=== PATIENT | female | born 1930 | race Caucasian/White ===

== ENCOUNTER 2019-04-14 18:05 | Inpatient (IN) | payer OTHER ==
[~2019-04-14] VITALS: Ht 152.4 cm; Wt 62.1 kg
[~2019-04-14 18:05] MED LIST: ACETAMINOPHEN325 M1 PO; ARICEPT10 MG PO; ASA81BEC PO; CARVEDILOL12.5 MG PO; CRESTOR10 MG PO; HYDROCHLOROTHIA25 M1 PO; LOPERAMIDE 2 MG2 M1 PO; MEDS; NOHOMEMEDICATIONS; PRINIVIL5 MG PO; RISPERDAL
[2019-04-14 18:07] VITALS: BP 85/33
[2019-04-14] MEDS ORDERED: GLIPIZIDE ER2.5 MG PO (18:13)
[2019-04-14] MEDS ORDERED: MAPAP325 MG PO (18:14)
[2019-04-14] MEDS ORDERED: LISINOPRIL2.5 MG PO (18:14)
[2019-04-14] MEDS ORDERED: LASIX 40 MG TAB40 MG PO (18:15)
[2019-04-14] MEDS ORDERED: ALLOPURINOL 10100 M3 PO (18:15)
[2019-04-14] MEDS ORDERED: LIPITOR40 MG PO (18:16)
[2019-04-14] MEDS ORDERED: NAC500 MG PO (18:19)
[2019-04-14 18:53] LABS: ABSOLUTE NEUTROPHILS 4.8 thou/uL (1.4-8.2); BASOPHILS 0.9 % (0.0-2.0); EOSINOPHILS 2.4 % (0.0-3.0); HEMATOCRIT 31.3 % (37.0-47.0); HEMOGLOBIN 9.7 gm/dL (12.0-15.0); LYMPHOCYTES 15.4 % (24.0-44.0); MCH 26.1 pg (26.0-34.0); MONOCYTES 7.3 % (1.0-8.0); PLATELET COUNT 311 thou/uL (150-400); RBC 3.72 mil/uL (4.20-5.00); RDW 19.7 % (10.5-14.5); WBC 6.5 thou/uL (4.0-11.0)
[2019-04-14 19:08] LABS: CALCIUM 10.1 mg/dL (8.5-10.1); CREATININE 7.6 mg/dL (0.6-1.0); MAGNESIUM 3.2 mg/dL (1.8-2.4); POTASSIUM 4.2 mmol/L (3.5-5.1)
[2019-04-14 19:26] LABS: ALBUMIN 3.3 g/dL (3.4-5.0); DIRECT BILIRUBIN 0.1 mg/dL (<0.1-0.3); TOTAL BILIRUBIN 0.4 mg/dL (<0.1-1.0); TOTAL PROTEIN 7.9 g/dL (6.4-8.2)
[2019-04-14 21:35] VITALS: BP 106/76
[2019-04-14 22:27] LABS: URINE CLARITY HAZY; URINE COLOR YELLOW
[2019-04-14 22:29] LABS: URINE BILIRUBIN 1+ (Negative); URINE BLOOD 3+ (Negative); URINE GLUCOSE-RANDOM* NEGATIVE (Negative); URINE KETONES NEGATIVE (Negative); URINE NITRITE-REFLEX NEGATIVE (Negative); URINE PROTEIN (DIPSTICK) 2+ (Negative); URINE UROBILINOGEN 0.2 E.U./dl (0.2-1.0)
[2019-04-14 22:30] LABS: URINE LEUKOCYTES-REFLEX 3+ (Negative)
[2019-04-14 22:33] LABS: SQUAMOUS 0-3 Few /LPF (0-3); URINE WBC-REFLEX >25 Many /HPF (0-5); WBC CLUMPS Packed (None Seen)
[2019-04-14 22:34] LABS: BACTERIA-REFLEX >30 Many /HPF (None Seen); CASTS None Seen /LPF (None Seen); CRYSTALS None Seen /LPF (None Seen); MUCUS 0-3 Light strn/LPF (None Seen); URINE RBC >20 Many /HPF (0-2)
[2019-04-15 05:21] VITALS: BP 112/48
[2019-04-15 05:35] LABS: CALCIUM 9.3 mg/dL (8.5-10.1); CREATININE 6.8 mg/dL (0.6-1.0)
[2019-04-15 05:42] LABS: HEMATOCRIT 26.5 % (37.0-47.0); HEMOGLOBIN 8.3 gm/dL (12.0-15.0); MCH 26.2 pg (26.0-34.0); MCHC 31.4 g/dL (28.0-37.0); MCV 83.3 fL (80.0-100.0); RBC 3.18 mil/uL (4.20-5.00); RDW 19.2 % (10.5-14.5)
[2019-04-15 07:30] VITALS: BP 98/58
--- NOTE | 2019-04-15 08:22 | NUR ---
PATIENTS CARE WER ASSUMED AT APPROX 0. PATIENT WAS ASSESSED AND PATIENT WAS UNABLE OR WOULD NOT ANSWER QUESTIONS. SHE IS A POOR HISTORIAN AT BEST. SOFT RESTRAINTS WERE PLACED AFTER AND ORDER BY NIESHA VALDES WAS GIVEN. THIS IS SO SHE WILL NOT PULLL OUT THE CARRASCO OF THE IV IN HOPE TO GET HER WELL HYDRATED. HOURLY ROUNDS WERE DONE WITH EVERY TWO HOURS RELAXATION MASSAGE OF HER WRIST BILATERAL. THE BED IS IN A LOW AND LOCKED POSITION. BED ALARM IS ON.
--- NOTE | 2019-04-15 08:39 | EKG ---
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: KATHRYN : [id number] Requested By: Yang Sidhu Order Number: [id number] MD: Josh Campbell Measurements Intervals [place] Rate: 78 P: HI: QRS: -54 QRSD: 163 T: 102 QT: 484 QTc: 552 Interpretive Statements Atrial fibrillation Left bundle branch block Compared to ECG 01/18/2010 13:15:59 Sinus rhythm no longer present Left-axis deviation no longer present Electronically Signed On 04-15-2019 8:39:38 TOILET AND LAUNDRY SOAP SUPERVISOR by Josh Campbell [email or web address] <ELECTRONICALLY SIGNED> By: Josh Campbell MD 04/15/19 0839 12 12 Josh Campbell MD /EPI
[2019-04-15 11:00] VITALS: BP 112/88
[2019-04-15 11:44] LABS: % SATURATION 15 % (20-39); IRON 37 ug/dL (50-170); TIBC 253 ug/dL (250-450)
--- NOTE | 2019-04-15 16:12 | NUR ---
met with patient who is in soft restraints. She admits from [facility]. Sp with patients son he reports patient doing well and ambulating until approx 2 months ago when her eyesight failed her. He reports she cannot see anything even 6 inches in front of her face. Her memory has deteriorated some and she has not been eating. Son questions if its cataracts and for quality of life he would want that fixed for his mom. he reports ever since eyesight loss her quality of life changed. She now is in a wc and not eating or drinking as well. Son hopeful to have medical team contact him with diagnosis. Plan return to [facility] at [place].
--- NOTE | 2019-04-15 16:52 | NUR ---
PT RESIDES AT [facility] FAXED CLINICAL UPDATE TO FACILITY RECEIVED CONFIRMATION AND LEFT MSG WITH [facility] IN ADM. DP TO FOLLOW.
--- NOTE | 2019-04-15 16:53 | NUR ---
ASSUMMED PT CARE AT APPROXIMATELY 0700. PT AWAKE AND ORIENTED TO HERSELF. PT DENIES HAVING PAIN. FREQUENT REORIENTATION PROVIDED. PT AND PT'S DPOA EDUCATED ABOUT POC. PT'S DPOA STATED UNDERSTANDING AND DENIED HAVING FURTHER QUESTIONS. PT PULLED OUT IV TODAY-RETRAINTS MAINTAINED. Q2 ASSESSMENTS ON RESTRAINTS. NOTIFIED DR OF LOW K+ LEVEL. DR ORDERED NEW MEDS. NEW MEDS IMPLEMENTED. NOTIFIED DR OF PT HAVING RUNS OF VTACH. ORDERED NEW MEDS. NEW MEDS IMPLEMENTED. PT'S RHYTHM STABLE. VITAL SIGNS STABLE. ENCOURAGED PT TO EAT AND DRINK FLUIDS. CARRASCO DC. PT HAD POST CARRASCO VOID. PT COMFORTABLE IN BED. PT DENIES HAVING FURTHER CONCERNS.
[2019-04-15 17:00] VITALS: BP 113/43
[2019-04-15 19:43] VITALS: BP 117/82
[2019-04-16 00:30] VITALS: BP 109/53
[2019-04-16 04:20] VITALS: BP 123/501
[2019-04-16 05:14] LABS: HEMATOCRIT 26.7 % (37.0-47.0); HEMOGLOBIN 8.3 gm/dL (12.0-15.0); MCH 26.3 pg (26.0-34.0); MCHC 31.1 g/dL (28.0-37.0); MCV 84.4 fL (80.0-100.0); RBC 3.16 mil/uL (4.20-5.00); WBC 6.7 thou/uL (4.0-11.0)
[2019-04-16 05:22] LABS: ALBUMIN 2.7 g/dL (3.4-5.0); CALCIUM 9.4 mg/dL (8.5-10.1); PHOSPHORUS 6.8 mg/dL (2.5-4.9)
[2019-04-16 05:36] LABS: CREATININE 5.7 mg/dL (0.6-1.0); POTASSIUM 4.7 mmol/L (3.5-5.1)
[2019-04-16 08:00] VITALS: BP 125/46
[2019-04-16 12:00] VITALS: BP 124/31
[2019-04-16 16:00] VITALS: BP 128/90
--- NOTE | 2019-04-16 19:39 | NUR ---
Patient AOX1 and calm today. Restraints were removed per physician's request. IV was wrapped. patient has been only picking at her heart monitor leads some today. Two PVR were performed. Both were less than 80cc. Patient was voiding ok although she is incontinent. Patient has one episode of 6 run vtack at 1542. Nurse did not receive a call from monitor room and was not aware until shift change when a second and third episode were noted around 1900 and 1923. fast food shift lead nurse aware and will place get consult for cardiology to see in am and will continue to monitor. Overall, patient had an uneventful day. she is not interested in eating much. She only ate a small amount of orange sherbert. She would not take any other food offered. She did however drink her tea and water.
[2019-04-16 19:52] VITALS: BP 102/52
--- NOTE | 2019-04-17 03:39 | NUR ---
PT AO X1 TO SELF. DENIES PAIN, NAUSEA VOMITING DIARRHEA.INCONTINENT. NO SIGNS OF AGITATION OVER NIGHT. PT FREQUENTLY HAS RUN OF VTACHs. 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 LOW BP, OTHERWISE STABLE. NO FURTHER C/O REPORTED. WILL CONTINUE WITH PLAN OF CARE.
[2019-04-17 04:15] VITALS: BP 101/48
[2019-04-17 04:28] LABS: ALBUMIN 2.2 g/dL (3.4-5.0); CALCIUM 9.1 mg/dL (8.5-10.1); CREATININE 4.9 mg/dL (0.6-1.0); PHOSPHORUS 6.1 mg/dL (2.5-4.9); POTASSIUM 5.1 mmol/L (3.5-5.1)
[2019-04-17 08:00] VITALS: BP 102/76
[2019-04-17 12:20] VITALS: BP 107/47
--- NOTE | 2019-04-17 13:39 | NUR ---
No weekend dc anticipated. [facility] is not able to accept weekend admissions. They can admit Saturday but will need updated physician notes and therapy. Will follow.
--- NOTE | 2019-04-17 15:03 | NUR ---
UPDATES FAXED TO [facility], FAX CONFIRMATION RECEIVED, CALLED RECEIVED
--- NOTE | 2019-04-17 17:25 | NUR ---
ASSUMED CARE OF PT AT SHIFT CHANGE. ASSESSMENT CHARTED. MEDS GIVEN PER JUL. VSS. PT ALERT TO SELF. NO C/O PAIN. PT SLEPT MOST OF DAY. CALM THORUGHOUT THE DAY. REFUSED TO EAT AND DRANK ONLY SIPS. WILL CONTINUE TO MONITOR AND FOLLOW POC.
[2019-04-17 18:19] VITALS: BP 97/34
[2019-04-17 19:40] VITALS: BP 110/47
[2019-04-18 04:38] LABS: ALBUMIN 2.4 g/dL (3.4-5.0); CALCIUM 9.1 mg/dL (8.5-10.1); CREATININE 4.3 mg/dL (0.6-1.0); PHOSPHORUS 5.4 mg/dL (2.5-4.9)
[2019-04-18 04:46] LABS: POTASSIUM 3.8 mmol/L (3.5-5.1)
[2019-04-18 05:20] VITALS: BP 129/57
--- NOTE | 2019-04-18 05:45 | NUR ---
PT AO X1. VERY LITTLE ORAL INTAKE. NO SIGN OF DISTRESS NOTED. VITAL SIGNS STABLE. CONTINUES WITH D5 IV FLUIDS. WILL CONTINUE WITH PLAN OF CARE.
[2019-04-18 08:00] VITALS: BP 112/69
--- NOTE | 2019-04-18 10:36 | NUR ---
PT CARE ASSUMED APPROX 0700. PT DENIES PAIN AND SOA. VSS. BS WNL. CARE TRANSFERRED TO ONCOMING NURSE AT THIS TIME. NO DISTRESS NOTED. RECEIVING NURSE DENIES QUESTIONS OR CONCERNS REGARDING PT INFO OR POC.
--- NOTE | 2019-04-18 12:38 | NUR ---
ORIENTED TO SELF. SOMNOLENT. NO COMPLAINTS, DENIES PAIN. COMPLETE CARES. INCONTINENT OF BOWEL AND BLADDER. BED LINENS CHANGED. SR PER TELE WITH RUNS OF V-TACH. ABNORMAL ALBEIT IMPROVING LABS NOTED. FALL PRECAUTIONS IN PLACE; WILL CONTINUE TO MONITOR CLOSELY.
[2019-04-18 15:40] VITALS: BP 120/42
[2019-04-18 20:30] VITALS: BP 113/48
--- NOTE | 2019-04-19 04:27 | NUR ---
PT AOX 1. MORE CONFUSED TONIGHT. PULLING ON MEDICAL EQUIPMENT , SUCH IVs. HALDOL AND HYDROXAZINE GIVEN. PT STILL COMBATIVE, KEEPS PULLING ON IVs. ORDERS FOR SOFT RESTRAIN OBTAINED. CARE PLAN ACTIVATED. RESTRAINTS DOCUMENTATION COMPLETE PER POLICY. WILL ATTEMPT TO START ANOTHER IV AND KEEP FLUID RUNNING. PT HAS POOR ORAL INTAKE. VSS, SLIGHTLY LOW BP. WILL CONTINUE TO CURRENT PLAN OF CARE.
[2019-04-19 04:42] LABS: INR 1.1; PROTIME 11.7 Seconds (9.3-11.4)
[2019-04-19 04:44] LABS: ALBUMIN 2.4 g/dL (3.4-5.0); CALCIUM 9.2 mg/dL (8.5-10.1); CREATININE 3.9 mg/dL (0.6-1.0); PHOSPHORUS 5.2 mg/dL (2.5-4.9); POTASSIUM 3.7 mmol/L (3.5-5.1)
[2019-04-19 04:46] VITALS: BP 115/61; BP 119/43
[2019-04-19 05:03] LABS: ABSOLUTE NEUTROPHILS 4.3 thou/uL (1.4-8.2); BASOPHILS 1.1 % (0.0-2.0); EOSINOPHILS 2.1 % (0.0-3.0); HEMATOCRIT 26.2 % (37.0-47.0); HEMOGLOBIN 8.2 gm/dL (12.0-15.0); LYMPHOCYTES 13.8 % (24.0-44.0); MCH 26.3 pg (26.0-34.0); MCHC 31.4 g/dL (28.0-37.0); MCV 83.8 fL (80.0-100.0); MONOCYTES 6.1 % (1.0-8.0); PLATELET COUNT 216 thou/uL (150-400); POLYS 76.9 % (36.0-66.0); RBC 3.13 mil/uL (4.20-5.00); RDW 19.4 % (10.5-14.5); WBC 5.6 thou/uL (4.0-11.0)
[2019-04-19 06:31] LABS: ANISOCYTOSIS 2+; OVALOCYTES 1+; PLATELET ESTIMATE NORMAL
[2019-04-19 06:32] LABS: POIKILOCYTOSIS 1+
[2019-04-19 07:30] VITALS: BP 117/60
--- NOTE | 2019-04-19 08:35 | HC ---
[facility] [place] [address] CONSULTATION Name: LYONSRUBY Room #: 215-P ADM IN M.R.#: [id number] Admission: 04/14/19 Attend Phys: Don Yang MD Discharge: Date of : [birth year] Report #: [id number] THIS REPORT FOR: //name// CC: Don Alexandra REASON FOR CONSULTATION: Acute kidney injury with an elevated creatinine. HISTORY OF PRESENT ILLNESS: The details of the history of present illness were obtained from the medical chart and the notes that the nursing facility sent to us. The patient has advanced dementia and is not able to provide me with the history. I am not really sure about the patient's baseline mental status. It does look like that the patient had some sort of chronic kidney disease. I had reviewed her long-term notes and laboratory values. Her creatinine had been in the 1.8-2.2 range in the last few months. The patient was sent to our facility after her CMP showed that her creatinine was up to 6.6 with a BUN of 120. Nurses reported to me that there is purulent urine in her Rosenberg bag. It was listed on her long-term facility medications that she has been taking glipizide, Lasix, lisinopril, so I am assuming that the patient carries the diagnosis of diabetes mellitus and hypertension. Further details as stated above are not available for me. PAST MEDICAL HISTORY: Obtained from the medical chart. 1. Dementia. 2. Cardiomyopathy. 3. Diabetes mellitus. 4. Hypertension. 5. Chronic kidney disease. SNF MEDICATIONS: 1. Aspirin. 2. Glipizide. 3. Lisinopril. 4. Lasix. 5. Atorvastatin. LISTED ALLERGIES: TETANUS, DIPHTHERIA TOXOID. REVIEW OF SYSTEMS: Unobtainable given the patient's current mental status. FAMILY HISTORY: Unobtainable given the patient's mental status. SOCIAL HISTORY: She resides in a nursing facility. Other parts of the social history unobtainable given the patient's mental status. PHYSICAL EXAMINATION: VITAL SIGNS: Blood pressure is 112/48, temperature 36.8, pulse rate 86, [facility] [address] [place] [address] CONSULTATION Name: RUBY LYONS [place] Room #: 215-P [facility] IN ..#: [id number] Admission: 04/14/19 Attend Phys: Don Yang MD Discharge: Date of : [birth year] Report #: [id number] respiratory rate is 18. HEAD AND NECK: Dry mucous membrane. CHEST: Limited air entry bilaterally, but no crackles detected. CARDIOVASCULAR: No rub detected. ABDOMEN: Soft, nontender. EXTREMITIES: Lower extremities, muscle wasting with no edema. LABORATORY DATA: Sodium 144, potassium 3.0, carbon dioxide 15, anion gap 20, BUN 120, creatinine 6.8. UA with +2 protein, +3 leukocyte esterase with significant red blood cells, white blood cells, and white blood cell clumps. Urine culture is pending. IMPRESSION AND PLAN: 1. Acute kidney injury. 2. Chronic kidney disease. 3. Urinary tract infection. 4. Hypokalemia. 5. Cardiomyopathy. 6. Advanced dementia. At this point, I would continue with the IV fluid, her acute kidney injury is likely to be due to a prerenal condition given her advanced dementia, lack of access to free water, current medications including Lasix and lisinopril. 1. Treat urinary tract infection. 2. Cultures are pending and we will adjust antibiotic accordingly. 3. Continue to hold Lasix and lisinopril. 4. Continue to monitor urine output. 5. We will continue to follow. <ELECTRONICALLY SIGNED> By: Anthony Hensley MD 04/19/19 0835 0934 [id number] Anthony Hensley MD /nt
[2019-04-19 16:00] VITALS: BP 135/62
--- NOTE | 2019-04-19 17:20 | NUR ---
ASSUMED CARE OF PT AT SHIFT CHANGE. ASSESSMENT CHARTED. MEDS GIVEN PER JUL. VSS. PT ALERT TO SELF. PT CALM ALL DAY, SLEPT MOST OF DAY. NEW IV STARTED BY IV TEAM, COVERED WITH COBAND. WILL CONTINUE TO MONITOR AND FOLLOW POC.
[2019-04-19 22:26] VITALS: BP 118/85
[2019-04-20 04:56] VITALS: BP 129/53
[2019-04-20 05:40] LABS: CREATININE 3.7 mg/dL (0.6-1.0); MAGNESIUM 2.3 mg/dL (1.8-2.4); PHOSPHORUS 5.8 mg/dL (2.5-4.9); POTASSIUM 4.2 mmol/L (3.5-5.1)
--- NOTE | 2019-04-20 07:05 | NUR ---
pt resting quietly thru the noc, turning prn, incon't of bowel and bladder, no c/o pain, vss, with runs of VT non sust., refused fluids, notified Dr Lockwood this am, will con't to monitor per ppoc.
[2019-04-20 08:00] VITALS: BP 128/50
[2019-04-20 12:00] VITALS: BP 99/38
--- NOTE | 2019-04-20 12:38 | NUR ---
ORDERS RECEIVED. CHART REVIEWED. Pt REFUSES ANY P.T.. PER CHART/NSG, Pt IS AT HER BASELINE. NO SKILLED P.T. AT THIS TIME.
--- NOTE | 2019-04-20 15:18 | NUR ---
OT ORDERS RECEIVED AND APPRECIATED. PATIENT DECLINED OT SERVICES DURING ACUTE STAY STATING THEY WOULD NOT BE BENEFICIAL AND SHE DOES NOT NEED THERAPY. PER EMR/NURSING, PATIENT AT BASELINE FUNCTIONAL. ANTICIPATE PATIENT SAFE TO RETURN TO MEMORY [facility]ARE UNIT/LTC UNIT. OT SERVICES WILL BE DISCONTINUED AT THIS TIME.
[2019-04-20 16:00] VITALS: BP 85/64
[2019-04-20 17:00] VITALS: BP 109/85
[2019-04-20 19:26] VITALS: BP 138/55
--- NOTE | 2019-04-20 20:01 | NUR ---
ASSUMMED PT CARE AT APPOXIMATELY 0700. PT AWAKE AND ORIENTED TO SELF. ASSESSMENT CHARTED. FALL PRECAUTIONS IN PLACE. PT DENIES HAVING PAIN. FREQUENT REORIENTATION PROVIDED. PT C HX OF ALZHEIMERS. PT AND PT'S FAMILY EDUCATED ABOUT POC. PT AND PT'S FAMILY STATED UNDERSTANDING AND DENIED HAVING FURTHER QUESTIONS. ENCOURAGED PT TO EAT AND DRINK. PT COMFORTABLE IN BED. PT DENIES HAVING FURTHER CONCERNS. VITAL SIGNS STABLE. BLOOD SUGARS STABLE.
--- NOTE | 2019-04-21 04:26 | NUR ---
pt resting quietly in room , no c/o pain, vss, with much encouragement pt ate a yogurt and various sips of water thru the noc, remains incont of urine, no bm this shift, turning prn, will con;t to monitor per ppoc.
[2019-04-21 04:42] VITALS: BP 135/56
[2019-04-21 08:00] VITALS: BP 111/36; BP 112/37
[2019-04-21 10:53] VITALS: BP 131/54
--- NOTE | 2019-04-21 13:29 | NUR ---
ASSUMMED PT CARE AT APPROXIMATELY 0700. PT AWAKE AND ORIENTED TO SELF. PT DENIES HAVING PAIN. FALL PRECAUTIONS IN PLACE. ASSESSMENT CHARTED.PT HAS HX OF ALZHEIMERS. FREQUENT REORIENTATION PROVIDED. PT DISCHARGING BACK [facility]. REPORT CALLED AND GIVEN TO RN AT [facility]. RN STATED UNDERSTANDING AND DENIED HAVING FURTHER QUESTIONS. VITAL SIGNS STABLE. BLOOD SUGARS STABLE. ENCOURAGED PT TO DRINK FLUIDS AND TO EAT. IV DC. TELE DC. PT AND PT'S FAMILY NOTIFIED OF POC. PT AND PT'S FAMILY STATED UNDERSTANDING AND DENIED HAVING FURTHER QUESTIONS. PT RECEIVING MEDICAL TRANSPORT BACK TO [facility]. PT COMFORTABLE IN BED. PT DENIES HAVING FURTHER CONCERNS.
--- NOTE | 2019-04-21 16:17 | NUR ---
PT DISCHARGING TODAY TO [facility] FAXED DC ORDERS/SUMMARY TO FACILITY SPOKE WITH ESTEPHANIE IN ADM SHE RECEIVED DC ORDERS. TRANSPORT ARRANGED THROUGH [facility] DOES NOT HAVE A STRETCHER VAN TRANSPORT AT [id number]. NOTIFIED PT'S SON OF DC AND TIME OF TRANSPORT. UNIT NOTIFIED AND CHART COPY PER US. RN TO CALL REPORT TO [phone].
== END 2019-04-21 15:45 | DRG 682 ==
LOC: ER 18:05 → 2N 20:31 → EROBS 20:31 → 2N 21:44
PROVIDERS: Emergency Medicine; Hospitalist; Internal Medicine; Nurse Practitioner Acute Care; ADMIT Hospitalist
DX: N17.9 Acute kidney failure, unspecified (principal); G93.41 Metabolic encephalopathy; N39.0 Urinary tract infection, site not specified; I42.9 Cardiomyopathy, unspecified; I50.22 Chronic systolic (congestive) heart failure; I47.1 Supraventricular tachycardia; E87.0 Hyperosmolality and hypernatremia; E46 Unspecified protein-calorie malnutrition; I13.0 Hypertensive heart and chronic kidney disease with heart failure and stage 1 through stage 4 chronic kidney disease, or unspecified chronic kidney disease; E86.0 Dehydration; D64.9 Anemia, unspecified; F03.90 Unspecified dementia, unspecified severity, without behavioral disturbance, psychotic disturbance, mood disturbance, and anxiety; E83.41 Hypermagnesemia; E87.6 Hypokalemia; E11.22 Type 2 diabetes mellitus with diabetic chronic kidney disease; N18.3 Chronic kidney disease, stage 3 (moderate); I95.9 Hypotension, unspecified; Z66 Do not resuscitate; Z51.5 Encounter for palliative care; Z90.710 Acquired absence of both cervix and uterus; Z88.7 Allergy status to serum and vaccine; Z86.73 Personal history of transient ischemic attack (TIA), and cerebral infarction without residual deficits; Z68.26 Body mass index [BMI] 26.0-26.9, adult
CPT/HCPCS: 10081